=== PATIENT | female | born 1995 | race Caucasian/White ===

== ENCOUNTER 2022-03-04 02:45 | Emergency (ER) | payer SELFPAY ==
[~2022-03-04] VITALS: Ht 165.1 cm; Wt 88.5 kg
[2022-03-04 02:45] VITALS: BP 114/63
--- NOTE | 2022-03-04 02:45 | NUR ---
PAOLA FROM BAR AFTER BEING FOUND ON GROUND. PER FRIENDS ON SCENE, PT CONSUMED LARGE AMOUNTS OF ALCOHOL AND PASSED OUT. CLEAT FEEDER PT HAD EMESIS X 2. BG CLEAT FEEDER WAS 146
--- NOTE | 2022-03-04 02:46 | NUR ---
BIBA TO BED #9
[2022-03-04] MEDS ORDERED: NACL 0.9% 1,000 ML IV ONE (02:55)
--- NOTE | 2022-03-04 02:55 | NUR ---
DR IVEY AT BEDSIDE FOR EXAM
[2022-03-04 03:41] LABS: BASOPHILS # (AUTO) 0.1 K/uL (0.00-0.22); BASOPHILS % (AUTO) 0.7 % (0.0-2.0); EOSINOPHILS % (AUTO) 0.1 % (0.0-4.0); HEMATOCRIT 35.1 % (36-48); HEMOGLOBIN 11.8 g/dL (12.0-16.0); LYMPHOCYTES # (AUTO) 1.1 K/uL (2.5-16.5); LYMPHOCYTES % (AUTO) 13.4 % (20.5-51.1); MEAN CORPUSCULAR HEMOGLOBIN 30 pg (27-31); MEAN CORPUSCULAR HGB CONC 34 g/dL (33-37); MEAN CORPUSCULAR VOLUME 89.7 fL (80-94); MONOCYTES # (AUTO) 0.3 K/uL (0.8-1.0); MONOCYTES % (AUTO) 4.2 % (1.7-9.3); NEUTROPHILS # (AUTO) 6.5 K/uL (1.8-7.7); NEUTROPHILS % (AUTO) 81.6 % (42.2-75.2); PLATELET COUNT (AUTO) 294 K/uL (140-450); RED BLOOD CELL COUNT(AUTO) 3.92 MIL/uL (4.20-5.40); RED CELL DISTRIBUTION WIDTH 12.8 % (11.6-13.7); WHITE BLOOD COUNT (AUTO) 7.9 K/uL (4.8-10.8)
[2022-03-04 04:11] LABS: ALBUMIN 3.2 g/dL (3.4-5.0); ANION GAP 15.1 (8-16); CARBON DIOXIDE 24.4 mmol/L (21-32); CREATININE 0.6 mg/dL (0.6-1.3); POTASSIUM 3.5 mmol/L (3.5-5.1); TOTAL BILIRUBIN 0.3 mg/dL (0.0-1.0)
--- NOTE | 2022-03-04 05:42 | NUR ---
AWAKE, AMBULATING AT BEDSIDE
[2022-03-04 06:20] VITALS: BP 114/63
--- NOTE | 2022-03-04 06:20 | NUR ---
Patient discharged with v/s stable. Written and verbal after care instructions given and explained. Patient verbalized understanding. Ambulatory with steady gait. All questions addressed prior to discharge. Advised to follow up with PMD.
== END 2022-03-04 06:20 | disposition home or self-care (01) ==
LOC: MED 02:45
DX: R41.82 Altered mental status, unspecified (principal); F10.129 Alcohol abuse with intoxication, unspecified; Y90.9 Presence of alcohol in blood, level not specified
CPT/HCPCS: 36415; 80053; 85025; 96360; 99283; G0482